=== PATIENT | male | born 1985 | race Caucasian/White ===

== ENCOUNTER 2016-02-08 13:05 | Emergency (ER) | payer MEDICAID, OTHER ==
[~2016-02-08] VITALS: Ht 162.6 cm; Wt 79.0 kg
[2016-02-08 13:25] VITALS: Ht 162.6 cm; Wt 79.0 kg
[2016-02-08] MEDS ORDERED: LIDOCAINE 1% (MDV) 20 ML INJ SC ONE (15:00)
[2016-02-08] MEDS ORDERED: AZITHROMYCIN 250 MG TAB PO ONE (15:00)
[2016-02-08] MEDS ORDERED: CEFTRIAXONE 250 MG INJ IM ONE (15:00)
[2016-02-08] MEDS ORDERED: CLOT30CR24 TOP (15:45)
--- NOTE | 2016-02-08 15:53 | ERD ---
ER Documentation Chief Complaint Date/Time DATE: 02/08/16 TIME: 15:48 Chief Complaint painful urination and discharge HPI Patient is a 30-year-old male who presents to the ED for penis pain, redness and white discharge. He states that he has had these symptoms on and off for a month. He states that he has seen a urologist possibly 1 month to 6 weeks ago and was given a cream. He denies pain with urination or burning with urination. Denies sexual activity, denies history of STDs. He states that there is redness under his foreskin and complains of pain at the site. He denies fever or chills. He denies abdominal pain. Denies pain or swelling in his testicles. Denies chest pain, cough shortness of breath or difficulty breathing. Denies difficulty urinating or stooling. ROS All systems reviewed and are negative except as per history of present illness. Medications Home Meds Active Scripts Clotrimazole* (Clotrimazole* AF) 1% - 30 Gm Cream.gm., 1 APPLIC TOP BID for 7 Days, TUB Prov:GATITO RODRÍGUEZ PA-C 02/08/16 Allergies Allergies: Coded Allergies: No Known Allergy (Unverified , 02/08/16) PMhx/Soc Medical and Surgical Hx: pt denies Medical Hx, pt denies Surgical Hx History of Surgery: No Anesthesia Reaction: No Hx Neurological Disorder: No Hx Respiratory Disorders: No Hx Cardiac Disorders: No Hx Psychiatric Problems: No Hx Miscellaneous Medical Probl: No Hx Alcohol Use: No Hx Substance Use: No Hx Tobacco Use: No Smoking Status: Never smoker FmHx Family History: No coronary disease, No diabetes, No other Physical Exam Vitals Vital Signs Date Time Temp Pulse Resp B/P Pulse Ox O2 Delivery O2 Flow Rate FiO2 02/08/16 13:25 98.6 99 18 141/79 98 Physical Exam GENERAL: Well-developed, well-nourished male. Appears in no acute distress. HEAD: Normocephalic, atraumatic. LUNG: Clear to auscultation bilaterally. No rhonchi, wheezing, rales or coarse breath sounds. HEART: Regular rate and rhythm. No murmurs, rubs or gallops. ABDOMEN: No scars, ecchymosis or rashes noted. Soft, nontender, and nondistended. Positive bowel sounds in all four quadrants. No rebound tenderness , no guarding. (-) McBurneys point tenderness. No CVA tenderness. no swelling or redness in testicles. no testicular torsion. redness under foreskin. no drainage. no rashes. BACK: No midline tenderness. Extremities: Equal pulses bilaterally. No peripheral clubbing, cyanosis or edema. No unilateral leg swelling. NEUROLOGIC: Alert and oriented. Moving all four extremities. 5/5 strength in all extremities. Normal speech. Steady gait. SKIN: Normal color. Warm and dry. Capillary refill < 2 seconds Results 24 hrs Current Medications Medications (Trade) Dose Ordered Sig/Tara Route PRN Reason Start Time Stop Time Status Last Admin Dose Admin Ceftriaxone Sodium (Rocephin) 250 mg ONCE ONCE IM 02/08/16 15:00 02/08/16 15:01 DC 02/08/16 16:12 Lidocaine (Xylocaine 1% (Mdv) 20 ml) 20 ml ONCE ONCE SC 02/08/16 15:00 02/08/16 15:01 DC 02/08/16 16:12 Azithromycin (Zithromax) 1,000 mg ONCE ONCE PO 02/08/16 15:00 02/08/16 15:01 DC 02/08/16 16:12 Ceftriaxone Sodium (Rocephin) 250 mg ONCE ONCE IM 02/08/16 16:30 02/08/16 16:31 DC Procedures/MDM ER COURSE: I kept the patient and/or family informed of laboratory and diagnostic imaging results throughout the emergency room course. MEDICATIONS: Rocephin, lidocaine and azithromycin given to patient. Patient tolerated medication well with no adverse reaction. LAB INTERPRETATION: UA showed no evidence of acute infection, trace hematuria. MEDICAL DECISION MAKING: This is a 30-year-old male who presents with white discharge in pain to his penis. Vital signs were reviewed. Patient is afebrile. Patient is not hypoxic. He is not toxic or ill-appearing. He likely has balanitis which I will be treating outpatiently. Low suspicion for necrotizing fasciitis, SJS, toxic epidermal necrolysis, Kawasaki, erythema multiforme, gangrene, scarlet fever, meningococcemia, sepsis, anaphylaxis. Low suspicion for parahimosis or phimosis. His white discharge could possibly related to STDs. I have treated patient in the ED today for that as well as sending out for culture. DISCHARGE: At this time, patient is stable for discharge and outpatient management with no new complaints during the ER course. Patient was sent home with clotrimazole. Patient will be discharged home with instructions to recheck for new or worsening symptoms such as fever, nausea, weakness, LOC and to follow up with primary care in the next 1-2 days. Patient was advised to return to the ER for any new or worsening symptoms. Plan was discussed and patient and/or family understands and agrees. Home instructions were given. Departure Diagnosis: Primary Impression: Balanitis Condition: Stable Patient Instructions: Rosa Additional Instructions: Call your primary care doctor TOMORROW for an appointment during the next 1-2 days.See the doctor sooner or return here if your condition worsens before your appointment time. GATITO RODRÍGUEZ PA-C Feb 08, 2016 15:53
[2016-02-08] MEDS ORDERED: CEFTRIAXONE 500 MG INJ IM ONE (16:30)
== END 2016-02-08 14:44 | disposition home or self-care (01) ==
LOC: FTE 13:05
DX: N48.1 Balanitis (principal)
CPT/HCPCS: 87591; 96372; J0696; Z7502; Z7610

== ENCOUNTER 2016-08-15 09:19 | Emergency (ER) | END 2016-08-15 10:56 | disposition home or self-care (01) | DX: N50.3 Cyst of epididymis (principal); N43.3 Hydrocele, unspecified; I10 Essential (primary) hypertension | CPT/HCPCS: 76870; 81003; Z7502 ==

== ENCOUNTER 2016-11-24 09:20 | Emergency (ER) | payer OTHER ==
[~2016-11-24] VITALS: Ht 157.5 cm; Wt 81.5 kg
[~2016-11-24 09:20] MED LIST: CLOT30CR24 TOP; IBUP-1542 PO
[2016-11-24 09:22] VITALS: Ht 157.5 cm; Wt 81.5 kg
[2016-11-24] MEDS ORDERED: CLOT30CR24 TOP (10:27)
--- NOTE | 2016-11-24 10:41 | ERD ---
ER Documentation Chief Complaint Chief Complaint Complains of painful urination HPI 31-year-old male presents emergency department with pain and itching below the glans penis for the past 3 days. The patient reports that he has had a similar situation, he is uncircumcised and had an infection and was treated with clotrimazole here and had improvement. He has not had any purulent discharge, drainage, rashes. Patient reports that he has been sexually active but has been several months. He denies any fevers, chills, hematuria, flank pain. ROS All systems reviewed and are negative except as per history of present illness. Medications Home Meds Active Scripts Clotrimazole* (Clotrimazole* AF) 1% - 30 Gm Cream.gm., 1 APPLIC TOP BID for 7 Days, TUB Prov:CHAPARRO FUNES PA-C 11/24/16 Ibuprofen* (Motrin*) 600 Mg Tab, 600 MG PO Q6H Y for PAIN AND OR ELEVATED TEMP, #30 TAB Prov:FLORINA WHITLOCK PA-C 08/15/16 Clotrimazole* (Clotrimazole* AF) 1% - 30 Gm Cream.gm., 1 APPLIC TOP BID for 7 Days, TUB Prov:GATITO RODRÍGUEZ PA-C 02/08/16 Allergies Allergies: Coded Allergies: No Known Allergy (Unverified , 08/15/16) PMhx/Soc History of Surgery: No Anesthesia Reaction: No Hx Neurological Disorder: No Hx Respiratory Disorders: No Hx Cardiac Disorders: Yes (hypertension) Hx Psychiatric Problems: No Hx Miscellaneous Medical Probl: No Hx Alcohol Use: No Hx Substance Use: No Hx Tobacco Use: No Physical Exam Vitals Vital Signs Date Time Temp Pulse Resp B/P Pulse Ox O2 Delivery O2 Flow Rate FiO2 11/24/16 09:22 97.8 111 20 172/85 98 Physical Exam General: Well-developed, well-nourished. The patient appears in no acute distress. HEENT: Head is normocephalic, atraumatic. No scleral icterus. Neck: Supple. Nontender. Lungs: Clear to auscultation. Normal air movement. Heart: Regular rate and rhythm. S1 and S2 are normal. No murmurs, gallops, or rubs. Abdomen: Soft, nontender, nondistended. Bowel sounds are normoactive. Exam: Scrotum: Normal Hernia: None Testes/Epid: Non-tender w/ normal lie Cremaster: Reflex intact Lymph: No inguinal lymphadenopathy Discharge: None Extremities: No clubbing or cyanosis. Normal pulses. Moving extremities x 4. No weakness. Neurologic: Alert and oriented 3. No focal deficits. Skin: Normal turgor. No rash or lesions. Procedures/MDM 31-year-old male presents emergency department with inflammation surrounding the glans penis. There is no evidence of HSV infection, chancre, abscess, no history to indicate presumed sexually transmitted disease. He will be given clotrimazole, urine was sent to rule out gonorrhea and chlamydia. Departure Diagnosis: Primary Impression: Rosa Condition: Good Patient Instructions: CHAPARRO Rodriguez PA-C Nov 24, 2016 10:41
== END 2016-11-24 10:55 | disposition home or self-care (01) ==
LOC: FTE 09:20
DX: N48.1 Balanitis (principal); I10 Essential (primary) hypertension
CPT/HCPCS: 87591; Z7502; 99283

== ENCOUNTER 2017-02-12 11:47 | Emergency (ER) | END 2017-02-12 14:30 | disposition home or self-care (01) ==

== ENCOUNTER 2017-02-28 07:15 | Emergency (ER) | END 2017-02-28 09:00 | disposition home or self-care (01) ==

== ENCOUNTER 2017-12-12 06:23 | Emergency (ER) | END 2017-12-12 07:19 | disposition home or self-care (01) ==